=== PATIENT | female | born 1935 | race Caucasian/White ===

== ENCOUNTER → 2018-02-13 | Outpatient (CLI) | payer MEDICARE ==
--- NOTE | 2018-02-13 12:01 | Diagnostic Imaging Report ---
PROCEDURE:X-RAY LEFT KNEE, THREE OR MORE VIEWS COMPARISON:None. INDICATIONS:LEFT KNEE PAIN FINDINGS: Mildly decreased mineralization. No acute, displaced fracture or dislocation. No lytic or blastic lesions. Mild degenerative changes, predominantly in the form of patellar osteophytes. No significant suprapatellar effusion. CONCLUSION: 1. No acute abnormalities. César Rich M.D. Dictated by: César Rich M.D. on 02/13/2018 at 12:03 Electronically approved by: César Rich M.D. on 02/13/2018 at 12:03
== END ==
LOC: RAD 09:40
PROVIDERS: ATTEND Family Medicine
DX: M17.12 Unilateral primary osteoarthritis, left knee (principal)